=== PATIENT | male | born 1975 | race Caucasian/White ===

== ENCOUNTER 2022-02-10 16:13 | Observation (INO) ==
[2022-02-10 17:13] LABS: Basophils % 0.5 %; Eosinophils % 0.3 %; Hemoglobin 14.9 g/dL (12.9-16.9); Immature Granulocytes % 1.3 % (0-4); Lymphocytes % 25.6 %; Mean Corpuscular HGB Conc 33.1 g/dL (31.6-35.5); Mean Corpuscular Hemoglobin 30.2 pg (28.0-33.3); Mean Corpuscular Volume 91.1 fL (83.0-100.0); Mean Platelet Volume 9.9 fL (9.4-12.4); Monocytes # 0.9 K/mcL (0.0-1.3); Neutrophils # 4.8 K/mcL (1.6-8.9); Platelet Count 172 K/mcL (140-400); Red Blood Count 4.94 M/mcL (4.19-5.50); Red Cell Distribution Width 13.9 % (11.5-14.5); Segmented Neutrophils % 61.3 %; White Blood Count 7.8 K/mcL (4.3-11.1)
[2022-02-10 17:32] LABS: BUN/Creatinine Ratio 16 (6-26); Blood Urea Nitrogen 19 mg/dL (6-20); Calcium 9.1 mg/dL (8.6-10.3); Carbon Dioxide 28 mEq/L (23-29); Chloride 102 mEq/L (98-107); Glucose 102 mg/dL (70-105); Osmolality,Calculated 282 (280-300); Potassium 3.7 mEq/L (3.5-5.1); Sodium 135 mEq/L (136-145); eGFR For African Americans > 60 (> 60); eGFR For Non-African Americans > 60 (> 60)
[2022-02-10 18:20] LABS: Influenza A PCR Negative (Negative); Influenza B PCR Negative (Negative); Resp. Syncytial Virus PCR Negative (Negative)
[2022-02-10 18:23] LABS: SARS-CoV-2 by PCR (In House) Positive (Negative)
[2022-02-10] MEDS ORDERED: Iopamidol - 370 500 ML MLS IVP ONE (20:26)
[2022-02-10 20:45] LABS: Troponin I < 0.03 ng/mL (< 0.04)
[2022-02-11] MEDS ORDERED: Melatonin 3 MG TABLET PO PRN (00:37)
[2022-02-11] MEDS ORDERED: Naloxone 0.4 MG/ML INJ IVP PRN (00:37)
[2022-02-11] MEDS ORDERED: Acetaminophen 325 MG TABLET PO PRN (00:37)
[2022-02-11] MEDS ORDERED: *HR* Heparin 5,000 UNIT/ML VIAL SQ SCH (00:45)
[2022-02-11 01:43] LABS: Basophils % 0.5 %; Hematocrit 42.9 % (37.5-50.1); Hemoglobin 14.2 g/dL (12.9-16.9); Immature Granulocytes % 1.4 % (0-4); Lymphocytes # 1.4 K/mcL (0.6-4.6); Mean Corpuscular HGB Conc 33.1 g/dL (31.6-35.5); Mean Corpuscular Hemoglobin 29.8 pg (28.0-33.3); Mean Corpuscular Volume 89.9 fL (83.0-100.0); Mean Platelet Volume 10.1 fL (9.4-12.4); Monocytes # 0.3 K/mcL (0.0-1.3); Monocytes % 4.6 %; Neutrophils # 5.5 K/mcL (1.6-8.9); Platelet Count 170 K/mcL (140-400); Red Blood Count 4.77 M/mcL (4.19-5.50); Red Cell Distribution Width 14.1 % (11.5-14.5); Segmented Neutrophils % 74.5 %; White Blood Count 7.4 K/mcL (4.3-11.1)
[2022-02-11 01:54] LABS: BUN/Creatinine Ratio 16 (6-26); Blood Urea Nitrogen 18 mg/dL (6-20); Calcium 8.8 mg/dL (8.6-10.3); Carbon Dioxide 23 mEq/L (23-29); Chloride 104 mEq/L (98-107); Glucose 151 mg/dL (70-105); Osmolality,Calculated 285 (280-300); Potassium 3.6 mEq/L (3.5-5.1); Sodium 135 mEq/L (136-145); eGFR For African Americans > 60 (> 60); eGFR For Non-African Americans > 60 (> 60)
[2022-02-11 01:59] LABS: Fibrinogen 329 mg/dL (169-393)
[2022-02-11 02:01] LABS: D-Dimer 618 ng/mLFEU (0-500)
[2022-02-11 02:05] LABS: Lactate Dehydrogenase 155 Units/L (140-271)
[2022-02-11] MEDS: Ipratropium 1 PUFF INHALER IH SCH ×3 (02:20→11:03)
[2022-02-11 04:06] LABS: Ferritin 385 ng/mL (20-250)
[2022-02-11 08:29] VITALS: BP 105/67; TEMP 97.8
[2022-02-11] MEDS ORDERED: dexAMETHasone 4 MG TABLET PO SCH (09:00)
[2022-02-11 12:30] VITALS: PULSE 74; O2SAT 98
== END 2022-02-11 14:17 | disposition home or self-care (01) ==
LOC: EMEROOARM 16:13 → 3BNU 16:13 → SUATTDRO 22:49 → 3BNU 23:35
PROVIDERS: ADMIT Internal Medicine; ATTEND Registered Nurse

== ENCOUNTER 2022-05-06 13:46 | Inpatient (IN) ==
[2022-05-06 17:17] LABS: Basophils % 0.6 %; Eosinophils # 0.1 K/mcL (0.0-0.6); Eosinophils % 2.1 %; Hematocrit 34.8 % (37.5-50.1); Hemoglobin 11.8 g/dL (12.9-16.9); Immature Granulocytes % 1.2 % (0-4); Lymphocytes # 1.1 K/mcL (0.6-4.6); Lymphocytes % 21.9 %; Mean Corpuscular HGB Conc 33.9 g/dL (31.6-35.5); Mean Corpuscular Hemoglobin 29.9 pg (28.0-33.3); Mean Corpuscular Volume 88.3 fL (83.0-100.0); Mean Platelet Volume 9.2 fL (9.4-12.4); Monocytes # 0.5 K/mcL (0.0-1.3); Monocytes % 9.3 %; Neutrophils # 3.3 K/mcL (1.6-8.9); Platelet Count 188 K/mcL (140-400); Red Blood Count 3.94 M/mcL (4.19-5.50); Segmented Neutrophils % 64.9 %; White Blood Count 5.2 K/mcL (4.3-11.1)
[2022-05-06] MEDS ORDERED: Acetaminophen IV 1,000 MG/100 ML BAG IVPB ONE (17:18)
[2022-05-06] MEDS ORDERED: MetroNIDAZOLE 500 MG/100 ML 500 MG/100 ML BAG IVPB ONE (17:20)
[2022-05-06] MEDS ORDERED: levoFLOXacin 500 MG/100 ML 500 MG/100 ML BAG IVPB ONE (17:20)
[2022-05-06 17:31] LABS: Calcium 8.6 mg/dL (8.6-10.3); Potassium 3.1 mEq/L (3.5-5.1)
[2022-05-06 17:35] LABS: Bilirubin,Urine Negative (Negative); Blood,Urine Negative (Negative); Clarity,Urine Clear (Clear); Color,Urine Yellow (Yellow); Glucose,Urine (UA) 30 mg/dL (Normal); Ketones,Urine Trace mg/dL (Negative); Leukocyte Esterase,Urine Negative (Negative); Mucus,Urine Many per lpf (None-Few); Nitrite,Urine Negative (Negative); PH,Urine 6.5 pH Units (5.0-8.0); Protein,Urine 70 mg/dL (Neg-Trace); RBC,Urine 0-3 per hpf (0-3); Specific Gravity,Urine > 1.030 (1.010-1.025); Squamous Epithelial Cell,Urine Few per hpf (None-Few); Urobilinogen,Urine Normal (Normal); WBC,Urine 0-3 per hpf (0-3)
[2022-05-06] MEDS: 0.9 % Sodium Chloride 1,000 ML IVC SCH ×2 (17:35→18:41)
[2022-05-06 17:40] LABS: Magnesium 1.9 mg/dL (1.6-2.6)
[2022-05-06] MEDS ORDERED: Potassium Chloride Elixir 20 MEQ/15 ML UDC PO ONE (18:06)
[2022-05-06] MEDS ORDERED: 0.9 % Sodium Chloride 1,000 ML IVC ONE (19:32)
[2022-05-06] MEDS ORDERED: Acetaminophen 325 MG TABLET PO PRN (20:28)
[2022-05-06] MEDS ORDERED: Naloxone 0.4 MG/ML INJ IVP PRN (20:28)
[2022-05-06] MEDS ORDERED: Melatonin 3 MG TABLET PO PRN (20:28)
[2022-05-06] MEDS ORDERED: 0.9 % Sodium Chloride 1,000 ML IVC SCH (20:30)
[2022-05-07] MEDS: Ondansetron 4 MG/2 ML VIAL IVP PRN ×2 (01:13→18:00)
[2022-05-07] MEDS: MetroNIDAZOLE 500 MG/100 ML 500 MG/100 ML BAG IVPB SCH ×3 (01:14→17:17)
[2022-05-07] MEDS: cefTRIAXone 1,000 MG in 0.9 % Sodium Chloride Mini Bag 100 ML IVPB SCH (10:22)
[2022-05-07] MEDS: Pantoprazole 40 MG VIAL IVP SCH (11:20)
[2022-05-07 11:36] LABS: Hematocrit 32.8 % (37.5-50.1); Hemoglobin 10.9 g/dL (12.9-16.9); Mean Corpuscular HGB Conc 33.2 g/dL (31.6-35.5); Mean Corpuscular Hemoglobin 29.9 pg (28.0-33.3); Mean Corpuscular Volume 90.1 fL (83.0-100.0); Mean Platelet Volume 9.3 fL (9.4-12.4); Platelet Count 155 K/mcL (140-400); Red Blood Count 3.64 M/mcL (4.19-5.50); Red Cell Distribution Width 15.2 % (11.5-14.5); White Blood Count 4.2 K/mcL (4.3-11.1)
[2022-05-07 11:58] LABS: BUN/Creatinine Ratio 5 (6-26); Blood Urea Nitrogen 5 mg/dL (6-20); Calcium 8.2 mg/dL (8.6-10.3); Carbon Dioxide 27 mEq/L (23-29); Chloride 106 mEq/L (98-107); Glucose 83 mg/dL (70-105); Osmolality,Calculated 280 (280-300); Potassium 3.4 mEq/L (3.5-5.1); Sodium 137 mEq/L (136-145)
[2022-05-07] MEDS ORDERED: GI Cocktail 40 ML EACH PO ONE (18:04)
[2022-05-08] MEDS: MetroNIDAZOLE 500 MG/100 ML 500 MG/100 ML BAG IVPB SCH (01:13)
[2022-05-08] MEDS ORDERED: 0.9 % Sodium Chloride 500 ML IVC ONE (01:20)
[2022-05-08 06:31] LABS: Hematocrit 29.9 % (37.5-50.1); Hemoglobin 10.1 g/dL (12.9-16.9); Mean Corpuscular HGB Conc 33.8 g/dL (31.6-35.5); Mean Corpuscular Hemoglobin 30.3 pg (28.0-33.3); Mean Corpuscular Volume 89.8 fL (83.0-100.0); Mean Platelet Volume 9.3 fL (9.4-12.4); Platelet Count 148 K/mcL (140-400); Red Blood Count 3.33 M/mcL (4.19-5.50); Red Cell Distribution Width 15.3 % (11.5-14.5); White Blood Count 5.2 K/mcL (4.3-11.1)
[2022-05-08 06:37] LABS: Calcium 8.1 mg/dL (8.6-10.3); Potassium 3.3 mEq/L (3.5-5.1)
[2022-05-08] MEDS: metroNIDAZOLE 500 MG TABLET PO SCH ×3 (09:15→20:32)
[2022-05-08] MEDS: Pantoprazole 40 MG VIAL IVP SCH (09:16)
[2022-05-08] MEDS: cefTRIAXone 1,000 MG in 0.9 % Sodium Chloride Mini Bag 100 ML IVPB SCH (09:16)
[2022-05-08] MEDS: Lactobacillus 1 EACH CAP.SPRINK PO SCH ×2 (13:02→20:32)
[2022-05-08] MEDS ORDERED: Ringers Solution, Lactated 1,000 ML IVC SCH (16:45)
[2022-05-08] MEDS ORDERED: Ipratropium/Albuterol Neb 3 ML IH PRN (18:01)
[2022-05-08] MEDS ORDERED: NON-FORMULARY MEDICATION 1 EACH EACH (Omeprazole 40 MG Capsule.Dr) PO SCH (18:15)
[2022-05-08] MEDS ORDERED: Mag Hydrox/Al Hydrox/Simeth 30 ML UDC PO PRN (18:44)
[2022-05-08 19:54] VITALS: BP 109/69; PULSE 88; TEMP 98.6; O2SAT 92
[2022-05-08] MEDS ORDERED: Folic Acid 1 MG TABLET PO SCH (20:15)
[2022-05-09] MEDS ORDERED: Tiotropium 10 INH DOSE IH SCH (10:00)
== END 2022-05-08 23:59 | disposition other institution (70) | DRG 372 ==
LOC: EMEROOARM 13:46 → 3ANU 13:46 → SUATTDRO 19:41 → 3ANU 21:07 → SUATTDRO 05-07 08:09
PROVIDERS: ADMIT Internal Medicine; ATTEND Internal Medicine